=== PATIENT | female | born 1935 | race Caucasian/White ===

== ENCOUNTER 2016-05-25 09:02 | Outpatient (CLI) | payer MEDICARE, OTHER ==
[2015-09-13 06:19] VITALS: BP 124/53
== END 2016-05-25 09:03 ==
LOC: LAB 09:02
PROVIDERS: ATTEND Family Medicine
DX: E03.9 Hypothyroidism, unspecified (principal); E78.00 Pure hypercholesterolemia, unspecified; E11.9 Type 2 diabetes mellitus without complications
CPT/HCPCS: 36415; 80061; 83036; 84443

== ENCOUNTER 2016-11-26 09:25 | Outpatient (CLI) | payer MEDICARE, OTHER ==
[2015-09-13 06:19] VITALS: BP 124/53
== END 2016-11-26 09:26 ==
LOC: LAB 09:25
PROVIDERS: ATTEND Family Medicine
DX: E11.9 Type 2 diabetes mellitus without complications (principal)
CPT/HCPCS: 36415; 83036

== ENCOUNTER 2017-05-30 10:28 | Outpatient (CLI) | payer MEDICARE, OTHER ==
[2015-09-13 06:19] VITALS: BP 124/53
[2017-05-30 10:46] LABS: EOSINOPHILS % 1.7 % (0.0-6.8); MEAN CORPUSCULAR HEMOGLOBIN 29.3 pg (28.0-34.0); MEAN CORPUSCULAR VOLUME 89.3 fl (80.0-100.0); MONOCYTES % 5.1 % (0.0-11.0); NEUTROPHILS # 4.8 # k/uL (1.4-7.7)
[2017-05-30 11:20] LABS: eGFR (African) > 60; eGFR (Non-African) > 60
== END 2017-05-30 10:30 ==
LOC: LAB 10:28
PROVIDERS: ATTEND Family Medicine
DX: E11.9 Type 2 diabetes mellitus without complications (principal); I10 Essential (primary) hypertension
CPT/HCPCS: 36415; 80053; 80061; 83036; 85025

== ENCOUNTER 2017-11-30 10:06 | Outpatient (CLI) | payer MEDICARE, OTHER ==
[2015-09-13 06:19] VITALS: BP 124/53
== END 2017-11-30 10:08 ==
LOC: LAB 10:06
PROVIDERS: ATTEND Family Medicine
DX: E11.9 Type 2 diabetes mellitus without complications (principal)
CPT/HCPCS: 36415; 83036

== ENCOUNTER 2018-07-05 10:13 | Outpatient (CLI) | payer MEDICARE, OTHER ==
[2015-09-13 06:19] VITALS: BP 124/53
== END 2018-07-05 10:14 ==
LOC: LAB 10:13
PROVIDERS: ATTEND Family Medicine
DX: E11.9 Type 2 diabetes mellitus without complications (principal)
CPT/HCPCS: 36415; 83036

== ENCOUNTER 2019-01-03 10:20 | Outpatient (CLI) | payer MEDICARE, OTHER ==
[2015-09-13 06:19] VITALS: BP 124/53
[2019-01-03 10:43] LABS: BASOPHILS % 0.4 % (0.0-1.5); NEUTROPHILS # 4.7 # k/uL (1.4-7.7)
[2019-01-03 10:44] LABS: A1C 6.8 % (<5.7)
[2019-01-03 11:35] LABS: HDL 77 mg/dL (>40); eGFR (Non-African) > 60
== END 2019-01-03 10:23 ==
LOC: LAB 10:20
PROVIDERS: ATTEND Family Medicine
DX: I10 Essential (primary) hypertension (principal); E03.9 Hypothyroidism, unspecified; E78.00 Pure hypercholesterolemia, unspecified
CPT/HCPCS: 36415; 80053; 80061; 83036; 84443; 85025

== ENCOUNTER 2019-04-05 15:17 | Outpatient (CLI) | payer MEDICARE, OTHER ==
[2015-09-13 06:19] VITALS: BP 124/53
== END 2019-04-05 15:22 ==
LOC: LABRHC 15:17
PROVIDERS: ATTEND Family Medicine
DX: E03.9 Hypothyroidism, unspecified (principal)
CPT/HCPCS: 84443